=== PATIENT | female | born 1960 | race Caucasian/White ===

== ENCOUNTER → 2021-02-22 13:18 | Outpatient (CLI) | payer BC, SELFPAY ==
--- NOTE | 2021-02-22 | XR_ITS ---
PROCEDURE INFORMATION: Exam: XR Right Finger(s) Exam date and time: 02/22/2021 12:00 AM Age: 61 years old Clinical indication: Pain; Finger(s); Patient HX: Right index finger was bitten by her pet bird and is inflamed and swollen TECHNIQUE: Imaging protocol: XR Right fingers. Views: Minimum 2 views. COMPARISON: No relevant prior studies available. FINDINGS: Bones/joints: There is no evidence of acute fracture. There is no evidence of joint malalignment or dislocation. Soft tissues: Soft tissue swelling is present. No radiopaque foreign body. IMPRESSION: 1. Soft tissue swelling is present. 2. No evidence of acute fracture. 3. No evidence of acute dislocation. 4. No radiopaque foreign body.
== END ==
PROVIDERS: PCP Nurse Practitioner Family; Visit Provider Nurse Practitioner Family
DX: L03.011 Cellulitis of right finger (principal)
CPT/HCPCS: 73140

== ENCOUNTER 2023-12-13 09:00 | Outpatient (RCR) | payer BC, SELFPAY | END 2023-12-30 13:45 | disposition home or self-care (01) | LOC: PT 09:00 | PROVIDERS: Visit Provider Orthopaedic Surgery | DX: M25.561 Pain in right knee (principal); Z96.651 Presence of right artificial knee joint | CPT/HCPCS: 97010; 97014; 97035; 97110; 97140; 97163; 97530; G0283 ==

== ENCOUNTER 2025-05-03 07:47 | Emergency (ER) | payer BC, SELFPAY ==
[2025-05-03] VITALS (7 sets, daily range): BP systolic 129–193; BP diastolic 79–103; PULSE 65–80; RESP 13–16; TEMP 36.6–36.7; O2SAT 90–100; BMI 27.4
--- NOTE | 2025-05-03 08:05 | CT_ITS ---
FINAL REPORT TECHNIQUE: After the administration of intravenous contrast, axial images were obtained through the abdomen and pelvis by computed tomography. The study was performed with techniques to keep radiation dose as low as reasonably achievable, (ALARA). Individual dose reduction techniques using automated exposure control or adjustment of mA and/or kV according to the patient's size were employed. CLINICAL HISTORY: LUQ/flank pain FINDINGS: Abdomen: There is a calcified granuloma at the left base. There is mild fatty infiltration of the liver. The gallbladder is present. The spleen, pancreas, adrenals, and kidneys are unremarkable. There is moderate left hydronephrosis and hydroureter. Hydroureter seen to the level of the UVJ where there is a 3 mm obstructing stone well-seen on image 106, series 3. There is a small amount of stranding along the right anterior pararenal fascia. The aorta is normal in caliber. There is no free fluid or adenopathy. Pelvis: The appendix is not identified. The urinary bladder is unremarkable. There is no free fluid or adenopathy. IMPRESSION: Moderate left hydronephrosis and hydroureter secondary to a 3 mm obstructing UVJ stone. Reviewed, Interpreted and Dictated by Jose Antonio Reyes MD Transcribed by Carolee George Authenticated and [facility]
--- NOTE | 2025-05-03 08:07 | ED_ITS ---
Discharge Plan Disposition Patient Disposition: Home, Self-Care Prescriptions Prescriptions: New oxycodone 5 mg tablet 5 mg PO Q6H PRN (Reason: pain) Qty: 12 0RF ondansetron 4 mg tablet,disintegrating 4 mg PO Q6H PRN (Reason: nausea and vomiting) Qty: 16 0RF tamsulosin 0.4 mg capsule 0.4 mg PO DAILY Qty: 7 0RF Referrals Follow up/Referrals: Erin Lazo [Primary Care Provider, Medical] - See instructions Kyle Biggs MD [Staff Physician, Urology] - See instructions Activity Restrictions/Add. Instructions Additional Instructions/Restrictions: You were found to have a small kidney stone. You are being prescribed tamsulosin to help pass the stone. Continue to drink plenty of fluids. You are also being prescribed oxycodone to help with pain. You are being prescribed Zofran to help with nausea. I am giving you follow-up with Dr. Biggs with the urology team. Whenever you urinate, urinate into the strainer to catch the kidney stone and you can take it with you to the appointment for testing if needed. You could also take Tylenol and ibuprofen to help with your pain if needed. If you develop any new or worsening symptoms, such as worsening pain, fever elevated heart rate, or if you become concerned for your help for any reason, return to the emergency department for evaluation. Clinical Impressions Clinical Impression: Ureterolithiasis Instructions Patient Instructions: DI for Acute Abdominal Pain Print Language Print Language: Mongolian Discharge ED Provider: Kyle Godoy General Adult HPI General Chief complaint: Abdominal Pain Stated complaint: left abd pain, vomiting, diarrhea Time Seen by Provider: 05/03/25 08:01 History of Present Illness HPI narrative: Maggie Lopez is a 65y female who presents to the emergency department for complaints of abdominal pain, nausea and vomiting and diarrhea. Patient states that she was woken from sleep this morning with sharp left-sided flank pain that radiates to her left abdomen as well as nonbilious nonbloody vomiting and nonbloody diarrhea. She states that she has been urinating more than recently but has not urinated this morning. She denies any chest pain or shortness of breath. She is concerned that she might have a kidney stone. She tried taking a sublingual Zofran this morning but states that she vomited it back up. Related Data Previous Rx's ?Medication ?Instructions ?Recorded ondansetron 4 mg disintegrating 4 mg PO Q6H PRN nausea and 05/03/25 tablet vomiting #16 tabs oxycodone 5 mg tablet 5 mg PO Q6H PRN pain #12 tab s 05/03/25 tamsulosin 0.4 mg capsule 0.4 mg PO DAILY #7 caps 04/23 06/17 Allergies Allergy/AdvReac Type Severity Reaction Status Date / Time No Known Allergies Allergy Verified 05/03/25 08:11 [facility] Disclaimer: The information contained in this section may have been updated after the patient was seen, as this information can be updated by other users. Social History Smoking Status: Never smoker alcohol intake: never current occupational status: other Travel in the last 8 weeks?: None ROS Obtained: Yes Systems reviewed as appropriate & no additional complaints except as documented Physical Exam General General appearance: alert and in no apparent distress Comment: Ill but non-toxic appearing Head Head exam: atraumatic Eye Eye exam: Present normal appearance ENT ENT exam: Present normal external ear exam Neck Neck exam: Present full ROM Chest Chest inspection: Present symmetric chest wall rise Respiratory Respiratory exam: Present normal lung sounds bilaterally; Absent respiratory distress, wheezes or stridor Cardiovascular Cardiovascular exam: Present regular rate and normal rhythm Abdominal Exam Abdominal exam: Present soft and tenderness (Left upper quadrant); Absent guarding or rigidity Extremities Exam Extremities exam: Present normal inspection Back Exam Back exam: Present normal inspection and tenderness (Left lumbar paraspinal area tenderness); Absent CVA tenderness (R) or CVA tenderness (L) Neurological Exam Neurological exam: Present alert and oriented X3 Psychiatric Psychiatric exam: Present normal affect Skin Skin exam: Present warm and dry Medical Decision Making Medical Records Screening: Per USPSTF and CDC recommendations, given the prevalence of disease in our region, it is our hospital?s policy to screen for HIV and viral Hepatitis for all patients aged 18 and over and those with ongoing risk factors. Jordy Inquiry Pt receiving controlled substance: Yes Jordy was queried for this patient: Yes Risks and benefits of using a controlled substance: were discussed with pt by me Vital Signs: 05/03/25 08:02 05/03/25 08:26 05/03/25 09:03 Temperature 97.8 F Temperature Source Oral Pulse Rate 69 70 Pulse Rate [Left Radial] 68 Respiratory Rate 13 Blood Pressure 129/88 186/86 H Blood Pressure [Right Arm] 145/79 H Blood Pressure Mean [Right Arm] 101 02 Sat by Pulse Oximetry 99 100 100 Oxygen Delivery Method Room Air Room Air Room Air 05/03/25 09:45 05/03/25 10:01 05/03/25 11:00 Temperature Temperature Source Pulse Rate 74 65 78 Pulse Rate [Left Radial] Respiratory Rate Blood Pressure 193/103 H 130/89 Blood Pressure [Right Arm] Blood Pressure Mean [Right Arm] 02 Sat by Pulse Oximetry 90 L 98 98 Oxygen Delivery Method 05/03/25 11:36 Temperature 98.1 F Temperature Source Pulse Rate 80 Pulse Rate [Left Radial] Respiratory Rate 16 Blood Pressure 130/89 Blood Pressure [Right Arm] Blood Pressure Mean [Right Arm] 02 Sat by Pulse Oximetry Oxygen Delivery Method Lab Data Lab Results 05/03/25 08:01: WBC 9.5, RBC 5.01, Hgb 13.7, Hct 42.1, MCV 84.0, MCH 27.3, MCHC 32.5, RDW 12.8, Plt Count 211, MPV 11.7 H, Neut % (Auto) 76.5, Lymph % (Auto) 17.1, [place] % (Auto) 5.4, Eos % (Auto) 0.4, Baso % (Auto) 0.3, Neut # (Auto) 7.3, Lymph # (Auto) 1.6, [place] # (Auto) 0.5, Eos # (Auto) 0.0, Baso # (Auto) 0.0, Sodium 138, Potassium 3.9, Chloride 102, Carbon Dioxide 24, Anion Gap 15.9 H, BUN 15, Creatinine 1.00, Estimated Creat Clear 67, Estimated GFR 56 L, Est GFR ( Amer) 68, Glucose 178 H, Lactate 2.7 H, Calcium 9.2, Magnesium 1.7, Total Bilirubin 0.8, AST 41 H, ALT 21, Alkaline Phosphatase 64, Troponin I < 0.01, Total Protein 7.8, Albumin 4.4, Globulin 3.4 H, Albumin/Globulin Ratio 1.3, Lipase 99 05/03/25 10:12: Urine Color Yellow, Urine Appearance Clear, Urine pH 8.5, Ur Specific [place] 1.015, Urine Protein Negative, Urine Glucose (UA) Negative, Urine Ketones Negative, Urine Blood Negative, Urine Nitrate Negative, Urine Bilirubin Negative, Urine Urobilinogen 0.2, Ur Leukocyte Esterase Negative, Urine RBC None, Urine WBC None, Ur Squamous Epith Cells Occasional, Urine Bacteria Trace 05/03/25 08:01 05/03/25 08:01 Orders (Tests/Meds): ED MEDICATIONS Discontinued Medications Generic Name Dose Route Start Last Admin Trade Name May PRN Reason Stop Dose Admin Lactated Ringer's 1,000 mls @ 999 mls/hr 05/03/25 08:05 05/03/25 09:19 Lactated Ringer's 1000 Ml Bag IV 05/03/25 09:05 Infused .Q1H1M ONE Infusion Iopamidol 75 ml 05/03/25 08:35 05/03/25 08:35 Iopamidol-370 (76%);100ml Bottle IV 05/03/25 08:36 75 ml ONCE ONE Administration Ketorolac Tromethamine 15 mg 05/03/25 08:05 05/03/25 08:11 Ketorolac 15mg/Ml Vial IV 05/03/25 08:06 15 mg ONCE ONE Administration Morphine Sulfate 4 mg 05/03/25 08:57 05/03/25 09:04 Morphine 4mg/Ml Syringe IV 05/03/25 08:58 4 mg ONCE ONE Administration Ondansetron HCl 4 mg 05/03/25 08:05 05/03/25 08:12 Ondansetron 4mg/2ml Vial IV 05/03/25 08:06 4 mg ONCE ONE Administration Ondansetron HCl 4 mg 05/03/25 11:34 05/03/25 11:39 Ondansetron 4mg/2ml Vial IV 05/03/25 11:35 4 mg ONCE ONE Administration Oxycodone HCl 5 mg 05/03/25 11:34 05/03/25 11:41 Oxycodone 5mg Immediate Release Tablet PO 05/03/25 11:35 5 mg ONCE ONE Administration Sodium Chloride 10 ml 05/03/25 08:35 05/03/25 08:35 Sodium Chloride 0.9% 10ml Syr (Rad Only) IV 05/03/25 08:36 10 ml ONCE ONE Administration ORDERS Category Date Time Status CT abdomen pelvis w con Stat Cat Scan 05/03/25 08:05 Completed CBC w/Auto Diff [Complete Blood Count Auto Diff] Stat Lab 12/11/25 08:01 Completed CMP [Comprehensive Metabolic Panel] Stat Lab 05/03/25 08:01 Completed Lactic Acid Stat Lab 05/03/25 08:01 Completed Lipase Stat Lab 05/03/25 08:01 Completed Magnesium Stat Lab 05/03/25 08:01 Completed Troponin I Stat Lab 05/03/25 08:01 Completed UA [Urinalysis and Microscopic] Stat Lab 05/03/25 10:12 Completed ECG Data Tracing #1: I reviewed this ECG and interpreted as documented below: NSR. No ST elevation or depression. QTc normal at 414 Medical Decision Narrative: Maggie Lopez is a 65y female who presents to the emergency department for complaints of abdominal pain, nausea and vomiting and diarrhea. Patient states that she was woken from sleep this morning with sharp left-sided flank pain that radiates to her left abdomen as well as nonbilious nonbloody vomiting and nonbloody diarrhea. She states that she has been urinating more than recently but has not urinated this morning. She denies any chest pain or shortness of breath. She is concerned that she might have a kidney stone. She tried taking a sublingual Zofran this morning but states that she vomited it back up. On arrival, patient is hemodynamically stable, afebrile, breathing comfortably on room air with appropriate oxygen saturation. Physical exam, stated above, revealed an ill but nontoxic-appearing female in no significant distress. She is actively vomiting at this time. Abdomen is tender in the left upper quadrant without rigidity or guarding. She has tenderness in the left lumbar paraspinal area but no CVA tenderness bilaterally. Cardiopulmonary exam is unremarkable. Differential diagnosis includes, but is not limited to: Ureterolithiasis/pyelonephritis, acute pancreatitis, ACS, viral gastroenteritis, diverticulitis, among others. The most morbid conditions were considered and workup was based on these. Workup in the emergency department included: Hematologic labs, urine studies, CT abdomen pelvis with contrast, EKG. Patient was treated with 1 L lactated ringer, 4 mg of IV Zofran and 15 mg of IV Toradol. EKG was interpreted by me personally and showed normal sinus rhythm without ischemic changes. See interpretation above. Laboratory studies show no leukocytosis, no anemia, mildly elevated anion gap 15.9 but electrolytes and kidney function within normal limits. Lactate mildly elevated 2.7. Patient receiving IV fluids. Magnesium level 1.7. Troponin less than 0.01. Mildly elevated AST of 41 but liver enzymes otherwise within normal limits and bilirubin within normal limits. Lipase normal at 99. Urinalysis with out blood or evidence of infection. CT abdomen pelvis was interpreted by me personally. Patient has a small, 3 mm kidney stone at the left UVJ and mild to moderate left hydronephrosis and hydroureter. Patient received 50 mg of IV Toradol, a total of 8 mg of IV Zofran, and 4 mg of IV morphine in the emergency department. She states that her pain is overall improving but still has some flank pain. Will administer 5 mg of oxycodone at this time. Given patient's kidney stone is small and located at the UVJ, I do feel that kidney stone Has a high likelihood of passing on its own without intervention. There is no evidence of an infected kidney stone at this time. I do feel patient is appropriate for discharge at this time with pain control, tamsulosin and urology follow-up. Will prescribe short course of oxycodone but recommended Tylenol and ibuprofen as well. Will prescribe Zofran for nausea and vomiting. Will prescribe tamsulosin. Will refer patient to Dr. Biggs with urology and provide her with a strainer to obtain the kidney stone for evaluation if needed. I did give the patient strict return precautions. All questions were answered. She demonstrated understanding and was in agreement with this plan. She was then discharged from the emergency department in stable condition. Critical Care Critical Care Time Critical Care Time: No
[2025-05-03] MEDS: KETOROLAC 15MG/ML VIAL 15 MG IV (08:11)
--- NOTE | 2025-05-03 08:11 | PC.NURSE ---
pt requesting warm blankets.
[2025-05-03] MEDS: LACTATED RINGERS 1000ML 1,000 ML 999 ML IV (08:12)
[2025-05-03] MEDS: ONDANSETRON 4MG/2ML VIAL 4 MG IV ×2 (08:12→11:39)
[2025-05-03 08:13] LABS: Hematocrit 42.1 % (37.0-47.0); Hemoglobin 13.7 g/dL (12.2-16.2); Immature Granulocytes % 0.3 %; Mean Corpuscular HGB Conc 32.5 g/dL (31.8-35.4); Mean Corpuscular Hemoglobin 27.3 pg (27.0-31.2); Mean Corpuscular Volume 84.0 fl (81-99); Nucleated Red Blood Cells % 0 %; Platelet Count 211 K/mm3 (142-424); Red Blood Count 5.01 M/mm3 (4.20-5.40); Red Cell Distribution Width-SD 38.9 fL; White Blood Count 9.5 K/mm3 (4.8-10.8)
--- NOTE | 2025-05-03 08:20 | ECG_ITS ---
APPROVED REPORT Exam: Resting ECG HR:60 bpm ECG Measurements Heart Rate 60 AXES QRSd 97 QRS 54 QT 412 T 57 QTc 414 Conclusion ATRIAL FIBRILLATION ABNORMAL RHYTHM ECG No STEMI Electronically signed by : YARED HOPKINS, 05/04/2025 06:42:39
[2025-05-03 08:22] LABS: Albumin Level 4.4 g/dl (3.5-5.0); Chloride 102 mmol/L (98-107); Sodium 138 mmol/L (136-145)
[2025-05-03 08:23] LABS: Potassium 3.9 mmoL/L (3.5-5.1)
[2025-05-03 08:25] LABS: Alanine Aminotransferase 21 U/L (12-78); Albumin/Globulin Ratio 1.3 (1.1-1.8); Alkaline Phosphatase 64 U/L (38-126); Aspartate Amino Transferase 41 U/L (14-36); Bilirubin,Total 0.8 mg/dl (0.2-1.3); Blood Urea Nitrogen 15 mg/dl (7-17); Calcium 9.2 mg/dl (8.4-10.2); Creatinine Clearance Estimated 67 mL/min (50-200); Creatinine,Serum 1.00 mg/dl (0.52-1.04); Estimated Glomerular Filt Rate 56 ml/min (>60); GFR (African American) 68 ML/MIN (>60); Globulin 3.4 g/dL (1.3-3.2); Glucose 178 mg/dl (74-100); Lipase 99 U/L (23-300); Magnesium 1.7 mg/dl (1.6-2.3); Total Protein,Serum 7.8 g/dl (6.3-8.2)
[2025-05-03] MEDS: SODIUM CHLORIDE 0.9% 10ML SYR (RAD ONLY) 10 ML IV (08:35)
[2025-05-03] MEDS: IOPAMIDOL-370 (76%);100ML BOTTLE 75 ML IV (08:35)
[2025-05-03 08:39] LABS: Troponin I < 0.01 ng/ml (0.00-0.034)
--- NOTE | 2025-05-03 08:50 | PC.NURSE ---
pt requesting more pain medication, notified
[2025-05-03] MEDS: MORPHINE 4MG/ML SYRINGE 4 MG IV (09:04)
[2025-05-03 09:24] LABS: Anion Gap 15.9 mEq/L (5-15); Carbon Dioxide 24 mmol/L (22.0-30.0)
[2025-05-03 10:20] LABS: Microscopic, Urine URINE MICROSCOPIC (MICROSCOPIC)
[2025-05-03 10:24] LABS: Bilirubin,Urine Negative (Negative); Color,Urine YELLOW (Yellow); Glucose,Urine (UA) Negative (Negative); Ketones,Urine Negative (Negative); Leukocyte Esterase,Urine Negative (Negative); PH,Urine 8.5 (5.0-8.5); Protein,Urine Negative (Negative); Specific Gravity, Urine 1.015 (1.005-1.030); Urobilinogen,Urine 0.2 EU/dl (0.2)
--- NOTE | 2025-05-03 11:14 | PC.NURSE ---
Per MD no second troponin
[2025-05-03 11:27] LABS: Bacteria,Urine Trace /lpf; Squamous Epithelial Cell,Urine Occasional #/hpf (0-5)
[2025-05-03] MEDS: OXYCODONE 5MG IMMEDIATE RELEASE TABLET 5 MG PO (11:41)
[2025-05-03 12:08] LABS: Reflex Lactic Add Lactic Reflex
== END 2025-05-03 11:56 | disposition home or self-care (01) ==
PROVIDERS: Emergency Provider Student in an Organized Health Care Education/Training Program; PCP Nurse Practitioner Family
DX: N13.2 Hydronephrosis with renal and ureteral calculous obstruction (principal)
CPT/HCPCS: 74177; 80053; 81001; 83605; 83690; 83735; 84484; 85025; 93005; 96361; 96374; 96375; 96376; 99285; J1885; J2270; J2405; J7120; Q9967